=== PATIENT | female | born 1950 | race Caucasian/White ===

== ENCOUNTER 2020-09-15 09:45 | Outpatient (CLI) | payer MEDICARE ==
--- NOTE | 2020-09-17 08:38 | Ultrasound Report ---
LIMITED ULTRASOUND OF LEFT BREAST: 09/15/2020 CLINICAL: Focal left breast pain and redness. Comparison is made to exam dated: 09/15/2020 mammogram - [facility]. Color flow ultrasound of the left breast 7-10 o'clock region was performed. Hernandez scale images of th e real-time examination were reviewed. There is skin thickening in the left breast in the lower inner quadrant. Minimally edematous appeara nce to dermal layer. No underlying subcutaneous edema or hypervascularity. No drainable fluid collect ions. IMPRESSION: SUSPICIOUS OF MALIGNANCY Abnormal skin morphology in the left breast lower inner quadrant. Surgical evaluation and punch biopsy of the skin to exclude inflammatory breast carcinoma is recommen ded. Findings and recommendations were conveyed to the patient at time of exam. This exam was interpreted at Station ID: [id number]. Electronically Signed By: Beryl lopez/:09/16/2020 17:14:36 Ultrasound BI-RADS: 4 Suspicious for malignancy BI-RADS CATEGORY: (4) - 4 None [id number] Immediate follow-up LATERALITY: ()
--- NOTE | 2020-09-17 08:38 | Mammography Report ---
BILATERAL DIGITAL DIAGNOSTIC MAMMOGRAM 3D/2D: 09/15/2020 CLINICAL: Focal left breast pain. No prior exams were available for comparison. The tissue of both breasts is heterogeneously dense. T his may lower the sensitivity of mammography. There are benign surgical clips in the left axilla from remote melanoma excision. There is skin thickening in the left breast from 6 to 9 o'clock that correlate with clinical concern, redness, and reported pain. No underlying masses or calcifications. No significant masses, calcifications, or other findings are seen in either breast. IMPRESSION: INCOMPLETE: NEEDS ADDITIONAL IMAGING EVALUATION Skin thickening corresponds to the left lower inner quadrant area of concern. Ultrasound is recommend ed for full evaluation of this area. This was performed immediately following this exam. This exam was interpreted at Station ID: [id number]. NOTE: For mammograms, a report in lay terms will be sent to the patient. Approximately 15% of breast malignancies will not be visualized mammographically. In the management of a palpable breast mass, a negative mammogram must not discourage biopsy of a clinically suspicious lesion. Electronically Signed By: Beryl lopez/:09/15/2020 11:57:24 ACR BI-RADS Category 0: Incomplete [id number] PARENCHYMAL PATTERN: (D) - The breast(s) demonstrate(s) heterogeneously dense fibroglandular rico patel. BI-RADS CATEGORY: (0) - 0 Ultrasound [id number] Immediate follow-up LATERALITY: (B)
== END 2020-09-15 09:46 | disposition home or self-care (01) ==
LOC: DI 09:45
PROVIDERS: ATTEND Physician Assistant
DX: N64.59 Other signs and symptoms in breast (principal); R23.4 Changes in skin texture

== ENCOUNTER 2020-12-16 08:41 | Outpatient (CLI) | payer MEDICARE ==
[2020-12-16 09:09] LABS: BASOPHILS % (AUTO) 0.5 %; EOSINOPHILS # (AUTO) 0.1 10^3/uL (0.0-0.7); EOSINOPHILS % (AUTO) 1.9 %; HCT - HEMATOCRIT 45.1 % (37.0-47.0); HGB - HEMOGLOBIN 14.9 g/dL (12.0-16.0); LYMPHOCYTES # (AUTO) 1.9 10^3/uL (1.5-3.5); LYMPHOCYTES % (AUTO) 30.5 %; MEAN CORPUSCULAR HEMOGLOBIN 29.9 pg (27.0-31.0); MEAN CORPUSCULAR VOLUME 90.4 fL (81.0-99.0); MEAN PLATELET VOLUME 12.2 fL (7.9-10.8); MONOCYTES # (AUTO) 0.4 10^3/uL (0.0-1.0); MONOCYTES % (AUTO) 6.9 %; NEUTROPHILS # (AUTO) 3.7 10^3/uL (1.5-6.6); PLT - PLATELET COUNT 230 10^3/uL (130-450); RED BLOOD COUNT 4.99 10^6/uL (4.20-5.40); RED CELL DISTRIBUTION WIDTH 12.9 % (12.0-15.0); WHITE BLOOD COUNT 6.2 x10^3/uL (4.8-10.8)
[2020-12-16 09:18] LABS: ALBUMIN/GLOBULIN RATIO 1.6 (1.0-2.2); CALCIUM 9.1 mg/dL (8.5-10.3); CREATININE 0.9 mg/dL (0.4-1.0); POTASSIUM 4.3 mmol/L (3.5-5.0); TOTAL PROTEIN 6.5 g/dL (6.7-8.2)
[2020-12-16 09:31] LABS: THYROID STIMULATING HORMONE 7.91 uIU/mL (0.34-5.60)
[2020-12-16 10:17] LABS: FREE T4 (FREE THYROXINE) 1.25 ng/dL (0.58-1.64)
== END 2020-12-16 08:42 | disposition home or self-care (01) ==
LOC: LAB 08:41
PROVIDERS: ATTEND Physician Assistant
DX: G35 Multiple sclerosis (principal); F32.9 Major depressive disorder, single episode, unspecified; E03.9 Hypothyroidism, unspecified; K21.9 Gastro-esophageal reflux disease without esophagitis; Z79.899 Other long term (current) drug therapy
CPT/HCPCS: 36415; 80053; 84439; 84443; 85025

== ENCOUNTER 2021-01-19 10:18 | Outpatient (CLI) | payer MEDICARE ==
[2021-01-19 11:30] LABS: THYROID STIMULATING HORMONE 14.73 uIU/mL (0.34-5.60)
[2021-01-19 12:21] LABS: FREE T4 (FREE THYROXINE) 0.99 ng/dL (0.58-1.64)
== END 2021-01-19 10:19 | disposition home or self-care (01) ==
LOC: LAB 10:18
PROVIDERS: ATTEND Physician Assistant
DX: E03.9 Hypothyroidism, unspecified (principal)
CPT/HCPCS: 36415; 84439; 84443

== ENCOUNTER 2021-03-11 07:43 | Outpatient (CLI) | payer MEDICARE ==
[2021-03-11 08:45] LABS: THYROID STIMULATING HORMONE 0.87 uIU/mL (0.34-5.60)
== END 2021-03-11 07:44 | disposition home or self-care (01) ==
LOC: LAB 07:43
PROVIDERS: ATTEND Physician Assistant
DX: E03.9 Hypothyroidism, unspecified (principal)
CPT/HCPCS: 36415; 84443

== ENCOUNTER 2021-03-25 06:41 | Day surgery (SDC) | payer MEDICARE ==
[2021-03-25] MEDS ORDERED: LACTATED RINGERS 1,000 ML IV ONE ×2 (07:11→08:29)
[2021-03-25] MEDS ORDERED: PROPARACAINE 0.5% OPHTH DROPS 15 ML LEFTEYE ONE (07:23)
[2021-03-25] MEDS ORDERED: CYCLOPENTOLATE 1% OPHTH DROPS 2 ML LEFTEYE ONE (07:25)
[2021-03-25] MEDS ORDERED: PHENYLEPHRINE 2.5% OPHTH 2 ML DROPS LEFTEYE ONE (07:25)
[2021-03-25] MEDS ORDERED: KETOROLAC 0.45% OPHTH DROPS LEFTEYE ONE (07:25)
[2021-03-25] MEDS ORDERED: MIDAZOLAM 2 MG/2 ML VIAL ONE (07:47)
--- NOTE | 2021-03-25 07:49 | ANESTHESIA ---
Pre-Anesthesia VS, & Labs - Diagnosis L cataract - Procedure L PhacoIOL Vital Signs: Temp Pulse Resp BP Pulse Ox 36.5 C 69 12 143/89 H 96 03/25/21 07:12 03/25/21 07:12 03/25/21 07:12 03/25/21 07:12 03/25/21 07:12 Height: 5 ft 8 in Weight (kg): 111 kg Body Mass Index: 37.2 BMI Classification: Obese - NPO >8 hours - Is Patient ?: No Home Medications and Allergies Allergies/Adverse Reactions: Allergies Allergy/AdvReac Type Severity Reaction Status Date / Time codeine Allergy Nausea Verified 03/25/21 07:48 Penicillins Allergy Rash Verified 03/25/21 07:47 Sulfa (Sulfonamide Allergy Rash Verified 03/25/21 07:47 Antibiotics) Anes History & Medical History - Anesthetic History Anesthesia Complications: reports: No previous complications Family history of Anesthesia Complications: Denies Family history of Malignant Hyperthermia: Denies - Medical History Cardiovascular: reports: Hypertension Pulmonary: reports: Pneumonia Gastrointestinal: reports: GERD Urinary: reports: None Musculoskeletal: reports: Fibromyalgia Endocrine/Autoimmune: reports: HyPOthyroidism Skin: reports: Herpes zoster - Surgical History General: reports: Cholecystectomy, Appendectomy Eyes Ears Nose Throat (EENT): Gynecologic: reports: Hysterectomy Orthopedic: reports: Other Exam General: Alert, Oriented x3, Cooperative Dental: WNL Mouth Openin Fingerbreadth Neck Mobility: Normal Mallampati classification: II Thyromental Distance: 4-6 cm Respiratory: Lungs clear Cardiovascular: Regular rate Plan Anesthesia Type: MAC Consent for Procedure(s) Verified and Reviewed: Yes Code Status: Attempt Resuscitation ASA classification: 2-Mild systemic disease Is this case an emergency?: No
[2021-03-25] MEDS ORDERED: EPINEPHrine 1 MG/ML AMP IR ONE (08:07)
[2021-03-25] MEDS ORDERED: VANCOMYCIN OPHTHALMI 8MG/0.8ML 8 MG/0.8 ML SYRINGE IO ONE ×2 (08:07→13:43)
[2021-03-25] MEDS ORDERED: PROPARACAINE 0.5% OPHTH DROPS 15 ML EACHEYE ONE (08:07)
[2021-03-25] MEDS ORDERED: TRIAMCIN/MOXIFLOX OPHTHALMIC 0.6 ML VIAL IO ONE ×2 (08:07→13:42)
[2021-03-25] MEDS ORDERED: BRIMONIDINE 0.2% OPHTH DROPS 5 ML OPTH ONE (08:07)
[2021-03-25] MEDS ORDERED: CHONDR SULF/HYALURONATE SYRINGE IO ONE (08:07)
[2021-03-25] MEDS ORDERED: TIMOLOL 0.5% OPHTH DROPS OPTH ONE (08:07)
[2021-03-25] MEDS ORDERED: BSS/LIDOCAINE/EPINEPHRINE 1 ML SYRINGE IO ONE (08:07)
--- NOTE | 2021-03-25 08:34 | OPERATIVE REPORT ---
Operative Report - Other Other Information/Narrative: Date of Surgery: 03/25/21 Preop Dx: Visually significant cataract left eye. This was the first cataract surgery. Postop Dx: Same Procedure: Phacoemulsification with posterior chamber intraocular lens implant left eye Surgeon: Dr. Jude Littlejohn Anesthesia: Monitored anesthesia care Complications: None Operative Indications: This is a 70-year-old F with progressive vision loss in the left eye due to 2+ nuclear sclerotic and 2-3+ cortical cataract. Best corrected visual acuity was 20/30 with glare to 20/60 vision in the left eye. Indications for surgery were: - Difficulty seeing words on a computer screen - Difficulty reading - Difficulty driving in low light or at night - Difficulty driving at night because of headlights from other vehicles - Difficulty with glare or bright lights in any situation - Difficulty tracking a golf ball The patient was consented at length concerning the risks and benefits of cat aract surgery after which the patient expressed a desire to proceed with surgery. Operative Procedure: The patient was taken into OR#3 and placed under monitored anesthesia care. A surgical time-out was conducted confirming correct patient, correct procedure, and correct surgical site. The patient was given topical anesthesia and then prepped and draped in the usual sterile fashion. The eye was entered at the 6 and 3 oclock positions. Intracameral Shugarcaine was injected into the anterior chamber followed by a dispersive viscoelastic. A continuous-tear curvilinear capsulorhexis was performed. The nucleus was hydrodissected and phacoemulsified. The cortex was evacuated using automated infusion and aspiration. A cohesive viscoelastic was injected into the capsular bag and a 21.0 diopter intraocular lens was inserted into the bag. Infusion and aspiration were used to evacuate the viscoelastic materials from the eye. The wounds were hydrated and the eye inflated to physiologic pressure using balanced salt solution. Approximately 0.25ml of a mixture of triamcinolone and moxifloxacin was injected trans-sclerally into the vitreous in the inferotempora l quadrant using a 30 gauge cannula. An additional 0.55ml of a mixture of triamcinolone, moxifloxacin, and vancomycin was injected subconjunctivally in the superior quadrant for infection and inflammation prophylaxis. Wound integrity was checked with Weck-Irene sponges. The patient was taken from the operating room in good condition and given post-op instructions.
[2021-03-25 08:43] VITALS: BP 139/64
--- NOTE | 2021-03-25 10:29 | ANESTHESIA POST OP EVALUATION ---
Anesthesia Post Eval - Post Anesthesia Eval Vitals: Last Vital Signs Temp 36.4 C L 03/25/21 08:40 Pulse 65 03/25/21 08:40 Resp 10 L 03/25/21 08:40 BP 139/64 H 03/25/21 08:40 Pulse Ox 100 03/25/21 08:40 CV Function Including HR & BP: Stable Pain Control: Satisfactory Nausea & Vomiting: Negative Mental Status: Baseline Respiratory Status: Airway Patent Hydration Status: Satisfactory Anesthesia Complications: None
[2021-03-25] MEDS ORDERED: BSS/LIDOCAINE/EPINEPHRINE 1 ML SYRINGE ONE (13:43)
[2021-03-25] MEDS ORDERED: EPINEPHrine 1 MG/ML AMP ONE (13:43)
[2021-03-25] MEDS ORDERED: BRIMONIDINE 0.2% OPHTH DROPS 5 ML ONE (13:43)
[2021-03-25] MEDS ORDERED: TIMOLOL 0.5% OPHTH DROPS ONE (13:43)
== END 2021-03-25 06:42 | disposition home or self-care (01) ==
LOC: SDS 06:41
PROVIDERS: ATTEND Ophthalmology
DX: H25.812 Combined forms of age-related cataract, left eye (principal); I10 Essential (primary) hypertension; G35 Multiple sclerosis; E03.9 Hypothyroidism, unspecified; K21.9 Gastro-esophageal reflux disease without esophagitis; M79.7 Fibromyalgia; Z68.37 Body mass index [BMI] 37.0-37.9, adult; E66.9 Obesity, unspecified; Z87.01 Personal history of pneumonia (recurrent); Z79.899 Other long term (current) drug therapy
CPT/HCPCS: 66984; A9270; J7120

== ENCOUNTER 2021-05-20 13:05 | Outpatient (CLI) | payer MEDICARE | END 2021-05-20 23:59 | disposition home or self-care (01) | LOC: LAB.N 13:05 | PROVIDERS: ATTEND Physician Assistant | DX: R05.3 Chronic cough (principal); Z20.822 Contact with and (suspected) exposure to COVID-19 ==

== ENCOUNTER 2021-06-10 16:16 | Outpatient (CLI) | payer MEDICARE | END 2021-06-10 16:17 | disposition critical access hospital (66) | LOC: EMS 16:16 | DX: R42 Dizziness and giddiness (principal); R11.0 Nausea; R19.7 Diarrhea, unspecified | CPT/HCPCS: A0425; A0427 ==

== ENCOUNTER 2021-06-10 16:43 | Emergency (ER) | payer MEDICARE ==
[2021-06-10] MEDS ORDERED: SODIUM CHLORIDE 0.9% 1,000 ML IV STA (16:50)
[2021-06-10 17:01] LABS: BASOPHILS % (AUTO) 0.4 %; EOSINOPHILS # (AUTO) 0.1 10^3/uL (0.0-0.7); EOSINOPHILS % (AUTO) 0.5 %; HCT - HEMATOCRIT 43.4 % (37.0-47.0); HGB - HEMOGLOBIN 14.1 g/dL (12.0-16.0); LYMPHOCYTES # (AUTO) 2.2 10^3/uL (1.5-3.5); LYMPHOCYTES % (AUTO) 22.8 %; MEAN CORPUSCULAR HEMOGLOBIN 28.7 pg (27.0-31.0); MEAN CORPUSCULAR HGB CONC 32.5 g/dL (32.0-36.0); MEAN CORPUSCULAR VOLUME 88.4 fL (81.0-99.0); MEAN PLATELET VOLUME 11.6 fL (7.9-10.8); MONOCYTES # (AUTO) 0.7 10^3/uL (0.0-1.0); MONOCYTES % (AUTO) 6.9 %; NEUTROPHILS # (AUTO) 6.5 10^3/uL (1.5-6.6); NEUTROPHILS % (AUTO) 69.1 %; PLT - PLATELET COUNT 237 10^3/uL (130-450); RED BLOOD COUNT 4.91 10^6/uL (4.20-5.40); WHITE BLOOD COUNT 9.5 x10^3/uL (4.8-10.8)
[2021-06-10 17:15] LABS: ALBUMIN 3.9 g/dL (3.2-5.5); ALBUMIN/GLOBULIN RATIO 1.5 (1.0-2.2); BILIRUBIN,TOTAL 0.7 mg/dL (0.2-1.0); CALCIUM 9.5 mg/dL (8.5-10.3); CREATININE 0.9 mg/dL (0.4-1.0); TOTAL PROTEIN 6.5 g/dL (6.7-8.2)
--- NOTE | 2021-06-10 17:21 | ED Physician Documentation ---
History of Present Illness - Stated complaint Stated Complaint: LIGHTHEADED - Chief complaint Chief Complaint: General - History obtained from History obtained from: Patient - History of Present Illness Timing: How many weeks ago (5) Pain level max: 0 Pain level now: 0 - Additonal information Additional information: Patient is a 70-year-old female who presents to the emergency department with diarrhea 2-3 times daily for the past 5 weeks. She has seen her doctor and been worked up for this with no cause found. She states she has not done the stool sample yet because she has not had any formed stool. No recent travel or antibiotics. No fevers. No chills. She went to the walk-in clinic today because she felt lightheaded. They sent her here for possible dehydration. Patient has no vomiting. No blood in the stool. Occasional crampy abdominal pain, none now Review of Systems Ten Systems: 10 systems reviewed and negative Constitutional: denies: Fever, Chills Ears: denies: Ear pain Nose: denies: Rhinorrhea / runny nose, Congestion Respiratory: denies: Cough GI: denies: Abdominal Pain, Nausea, Vomiting, Diarrhea : denies: Dysuria Skin: denies: Rash Musculoskeletal: denies: Neck pain, Back pain Neurologic: denies: Headache PD PAST MEDICAL HISTORY - Past Medical History Cardiovascular: Hypertension Respiratory: Pneumonia Endocrine/Autoimmune: HyPOthyroidism GI: GERD : None HEENT: Other Psych: None Musculoskeletal: Fibromyalgia Derm: Herpes zoster - Past Surgical History General: Cholecystectomy, Appendectomy Ortho: Other /OPERATIONS BOARDMAN: Hysterectomy HEENT:  - Present Medications Home Medications: Ambulatory Orders Medication Instructions Recorded Confirmed DULoxetine [Cymbalta] 30 mg PO DAILY 03/25/21 06/10/21 Levothyroxine [Synthroid] 175 mcg PO DAILY 03/25/21 06/10/21 Omeprazole 1 tab PO DAILY 03/25/21 06/10/21 - Allergies Allergies/Adverse Reactions: Allergies Allergy/AdvReac Type Severity Reaction Status Date / Time codeine Allergy Nausea Verified 06/10/21 16:48 Penicillins Allergy Rash Verified 06/10/21 16:48 Sulfa (Sulfonamide Allergy Rash Verified 06/10/21 16:48 Antibiotics) PD ED PE NORMAL - Vitals Vital signs reviewed: Yes - General General: Alert and oriented X 3, No acute distress - HEENT HEENT: Moist mucous membranes - Neck Neck: Supple, no meningeal sign - Cardiac Cardiac: RRR - Respiratory Respiratory: No respiratory distress, Clear bilaterally - Abdomen Abdomen: Soft, Non tender, Non distended - Derm Derm: Warm and dry - Extremities Extremities: No edema, No calf tenderness / cord - Neuro Neuro: Alert and oriented X 3 - Psych Psych: Normal mood, Normal affect Results - Vitals Vitals: Vital Signs - 24 hr 06/10/21 06/10/21 06/10/21 16:48 17:01 20:13 Temperature 36.5 C Heart Rate 75 60 Respiratory 16 13 20 Rate Blood Pressure 163/88 H 178/95 H 156/93 H O2 Saturation 99 100 Oxygen O2 Source Room air - Labs Labs: Laboratory Tests 06/10/21 06/10/21 06/10/21 16:57 16:57 17:40 WBC 9.5 RBC 4.91 Hgb 14.1 Hct 43.4 MCV 88.4 MCH 28.7 MCHC 32.5 RDW 13.0 Plt Count 237 MPV 11.6 H Neut # (Auto) 6.5 Lymph # (Auto) 2.2 [place] # (Auto) 0.7 Eos # (Auto) 0.1 Baso # (Auto) 0.0 Absolute Nucleated RBC 0.00 Nucleated RBC % 0.0 Sodium 139 Potassium 4.0 Chloride 102 Carbon Dioxide 28 Anion Gap 9.0 BUN 17 Creatinine 0.9 Estimated GFR (MDRD) 62 L Glucose 103 H Calcium 9.5 Total Bilirubin 0.7 AST 17 ALT 18 Alkaline Phosphatase 74 Total Protein 6.5 L Albumin 3.9 Globulin 2.6 Albumin/Globulin Ratio 1.5 Lipase 31 Urine Color STRAW Urine Clarity CLEAR Urine pH 5.5 Ur Specific [place] <=1.005 Urine Protein NEGATIVE Urine Glucose (UA) NEGATIVE Urine Ketones NEGATIVE Urine Occult Blood NEGATIVE Urine Nitrite NEGATIVE Urine Bilirubin NEGATIVE Urine Urobilinogen 0.2 (NORMAL) Ur Leukocyte Esterase SMALL H Urine RBC None Seen Urine WBC 4-5 Ur Squamous Epith Cells FEW Squamous Urine Bacteria Few Ur Microscopic Review INDICATED Urine Culture Comments INDICATED - Rads (name of study) ct ABD/PELVIS Radiology: Final report received, EMP read contemporaneously, See rad report PD MEDICAL DECISION MAKING - ED course Complexity details: reviewed results, re-evaluated patient, considered differential, d/w patient ED course: Patient is well-appearing, nontoxic. Afebrile. Tolerating p.o. without difficulty here. Possible gastroenteritis on CT abdomen pelvis. Feels better after IV fluids. No vital sign abnormalities. We will continue supportive care, recommend that she perform stool testing with her doctor. No diarrhea here. No evidence of C. difficile. No indication for antibiotics. She has a colonoscopy scheduled later this month as well. Patient counseled regarding signs and symptoms for which I believe and urgent re-evaluation would be necessary. Patient with good understanding of and agreement to plan and is comfortable going home at this time This document was made in part using voice recognition software. While efforts are made to proofread this document, sound alike and grammatical errors may occur. Departure - Departure Disposition: 01 Home, Self Care Clinical Impression: Dehydration Diarrhea Qualifiers: Diarrhea type: unspecified type Qualified Code(s): R19.7 - Diarrhea, unspecified Condition: Good Instructions: ED Dehydration, ED Diet Vomiting Diarrhea Follow-Up: Abdulkadir Richards, [Primary Care Provider] - Within 1 week Comments: I would recommend doing the stool studies as have been ordered by your doctor. I would also recommend you following up with a colonoscopy. Your CT of your abdomen and pelvis appears consistent with a gastroenteritis. Please drink plenty of fluids. Return if you worsen. Discharge Date/Time: 06/10/21 20:17
[2021-06-10] MEDS ORDERED: IOPAMIDOL-300 100 ML VIAL ONE (17:25)
[2021-06-10] MEDS ORDERED: IOPAMIDOL-300 100 ML VIAL IVP ONE (18:12)
[2021-06-10 18:26] LABS: BILIRUBIN,URINE NEGATIVE (NEGATIVE); CLARITY,URINE CLEAR (CLEAR); GLUCOSE, URINE (UA) NEGATIVE (NEGATIVE); KETONES,URINE (UA) NEGATIVE (NEGATIVE); LEUKOCYTE ESTERASE, URINE SMALL (NEGATIVE); NITRITE,URINE NEGATIVE (NEGATIVE); OCCULT BLOOD,URINE NEGATIVE (NEGATIVE); PH,URINE 5.5 PH (5.0-7.5); PROTEIN,URINE NEGATIVE (NEGATIVE); UROBILINOGEN,URINE 0.2 (NORMAL) E.U./dL (NORMAL)
[2021-06-10 18:44] LABS: BACTERIA,URINE Few /HPF (None Seen); RBC,URINE None Seen /HPF (0-5); SQUAMOUS EPITHELIAL CELL,UR FEW Squamous (<= Few)
--- NOTE | 2021-06-10 19:08 | CT Report ---
PROCEDURE: Abdomen/Pelvis W INDICATIONS: diffuse abd pain, diarrhea x 5 weeks CONTRAST: IV CONTRAST: Isovue 300 ml: 100 PO CONTRAST: *NO PO CONTRAST TECHNIQUE: After the administration of intravenous contrast, 5 mm thick sections acquired from the diaphragms to the symphysis. 5 mm thick coronal and sagittal reformats were acquired. For radiation dose reducti on, the following was used: automated exposure control, adjustment of mA and/or kV according to radha ent size. COMPARISON: None. FINDINGS: Image quality: Excellent. ABDOMEN: Lung bases: There is mild scarring the lung bases. Heart size is normal. Solid organs: Evaluation of the liver demonstrates no focal hepatic lesions. Gallbladder is surgical ly absent. Biliary system is non dilated. The spleen is normal in size. Pancreas enhances normally w ithout peripancreatic fat stranding or fluid collections. No adrenal nodules. Kidneys demonstrate n o hydronephrosis. There is a small hypodensity in the left kidney which is too small to characterize but likely represents a cyst. Peritoneum and bowel: Bowel loops demonstrate normal wall thickness and caliber. There is colonic di verticulosis without acute diverticulitis. There are air-fluid levels within the cecum and descending colon suggestive of a gastroenteritis. No free fluid or air. Nodes and vessels: No retroperitoneal or mesenteric adenopathy by size criteria. Aorta and inferior vena cava are normal in size. Miscellaneous: No ventral hernias. PELVIS: Genitourinary: Bladder wall thickness is normal. Miscellaneous: No inguinal hernias or adenopathy. Bones: No suspicious bony lesions. No vertebral body compression fractures. IMPRESSION: 1. Air-fluid levels within the proximal colon suggestive of a gastroenteritis. No evidence of bowel o bstruction. Reviewed by: Eric Constantino MD on 06/10/2021 6:07 PM [facility] Approved by: Eric Constantino MD on 06/10/2021 6:07 PM [facility] Station ID: [id number]
[2021-06-10 20:17] VITALS: BP 156/93
== END 2021-06-10 20:17 | disposition home or self-care (01) ==
LOC: ED 16:43
DX: E86.0 Dehydration (principal); R19.7 Diarrhea, unspecified
CPT/HCPCS: 36415; 74177; 80053; 81001; 83690; 85025; 87086; 96360; 96361; 99283; 99284; Q9967; 81003

== ENCOUNTER 2021-06-29 12:28 | Day surgery (SDC) | payer MEDICARE ==
[2021-06-29] MEDS ORDERED: LACTATED RINGERS 1,000 ML IV ONE (12:30)
--- NOTE | 2021-06-29 13:08 | ANESTHESIA ---
Pre-Anesthesia VS, & Labs - Diagnosis diverticuar disease - Procedure colonoscopy Vital Signs: Temp Pulse Resp BP Pulse Ox 36.9 C 70 18 156/85 H 98 06/29/21 12:34 06/29/21 12:34 06/29/21 12:34 06/29/21 12:34 06/29/21 12:34 Height: 5 ft 8 in Weight (kg): 112 kg Body Mass Index: 37.5 BMI Classification: Obese - NPO >8 hours - Is Patient ?: No Home Medications and Allergies DULoxetine [Cymbalta] 30 mg PO DAILY 03/25/21 Levothyroxine [Synthroid] 175 mcg PO DAILY 03/25/21 Omeprazole 1 tab PO DAILY 03/25/21 Allergies/Adverse Reactions: Allergies Allergy/AdvReac Type Severity Reaction Status Date / Time codeine Allergy Nausea Verified 06/10/21 16:48 Penicillins Allergy Rash Verified 06/10/21 16:48 Sulfa (Sulfonamide Allergy Rash Verified 06/10/21 16:48 Antibiotics) divalproex sodium AdvReac Severe Emesis Verified 06/16/21 16:16 [From Depakote] lorazepam AdvReac Severe Edema Verified 06/16/21 16:16 naproxen [From Naprosyn] AdvReac Severe Edema Verified 06/16/21 16:16 nortriptyline AdvReac Severe Emesis Verified 06/16/21 16:16 prednisone AdvReac Severe Emesis Verified 06/16/21 16:16 prochlorperazine AdvReac Severe Emesis Verified 06/16/21 16:16 [From Compazine] Anes History & Medical History - Anesthetic History Anesthesia Complications: reports: No previous complications - Medical History Cardiovascular: reports: Hypertension Pulmonary: reports: Pneumonia Gastrointestinal: reports: GERD Urinary: reports: None Musculoskeletal: reports: Fibromyalgia, Other (MS) Endocrine/Autoimmune: reports: HyPOthyroidism Blood Disorders: reports: None Skin: reports: Herpes zoster Smoking Status: Never smoker History of Cancer?: Yes (melenoma) - Surgical History General: reports: Cholecystectomy, Appendectomy Eyes Ears Nose Throat (EENT): Gynecologic: reports: Hysterectomy, Oophrectomy Orthopedic: reports: Other Exam General: Alert, Oriented x3 Mouth Opening: Greater than 4 Fingerbreadths Mallampati classification: III Thyromental Distance: greater than 6 cm Respiratory: Lungs clear Cardiovascular: Regular rate, Normal S1, Normal S2 Plan Anesthesia Type: Total IV Consent for Procedure(s) Verified and Reviewed: Yes Code Status: Attempt Resuscitation ASA classification: 2-Mild systemic disease Is this case an emergency?: No
[2021-06-29] MEDS ORDERED: PROPOFOL 500 MG/50 ML 500 MG/50 ML VIAL ONE (13:19)
[2021-06-29] MEDS ORDERED: GLYCOPYRROLATE 1 MG/5 ML VIAL ONE (13:33)
[2021-06-29] MEDS ORDERED: LACTATED RINGERS 400 ML IV ONE (13:45)
[2021-06-29 14:40] VITALS: BP 130/68
--- NOTE | 2021-06-29 14:40 | ANESTHESIA POST OP EVALUATION ---
Anesthesia Post Eval - Post Anesthesia Eval Vitals: Last Vital Signs Temp 36.9 C 06/29/21 14:15 Pulse 62 06/29/21 14:15 Resp 12 06/29/21 14:15 BP 130/68 06/29/21 14:15 Pulse Ox 98 06/29/21 14:15 CV Function Including HR & BP: Stable Pain Control: Satisfactory Nausea & Vomiting: Negative Mental Status: Baseline Respiratory Status: Airway Patent Hydration Status: Satisfactory Anesthesia Complications: None
== END 2021-06-29 12:29 | disposition home or self-care (01) ==
LOC: SDS 12:28
PROVIDERS: ATTEND Surgery
PROC: 0DBE8ZX Excision of Large Intestine, Via Natural or Artificial Opening Endoscopic, Diagnostic (ICD-10-PCS; principal; 2021-06-29 13:45)
DX: R19.7 Diarrhea, unspecified (principal); K64.8 Other hemorrhoids; K57.30 Diverticulosis of large intestine without perforation or abscess without bleeding; Q43.8 Other specified congenital malformations of intestine; E66.9 Obesity, unspecified; I10 Essential (primary) hypertension; Z68.38 Body mass index [BMI] 38.0-38.9, adult
CPT/HCPCS: 45380; 81599; 83630; 87015; 87177; 87209; 87272; 87329; 87493; J7120; 87045; 87046

== ENCOUNTER 2021-12-21 11:48 | Emergency (ER) | payer MEDICARE ==
[2021-12-21 12:20] LABS: BASOPHILS % (AUTO) 0.4 %; EOSINOPHILS # (AUTO) 0.1 10^3/uL (0.0-0.7); EOSINOPHILS % (AUTO) 0.7 %; HCT - HEMATOCRIT 45.5 % (37.0-47.0); HGB - HEMOGLOBIN 14.7 g/dL (12.0-16.0); LYMPHOCYTES # (AUTO) 1.5 10^3/uL (1.5-3.5); MEAN CORPUSCULAR HEMOGLOBIN 28.9 pg (27.0-31.0); MEAN CORPUSCULAR HGB CONC 32.3 g/dL (32.0-36.0); MEAN CORPUSCULAR VOLUME 89.4 fL (81.0-99.0); MEAN PLATELET VOLUME 11.7 fL (7.9-10.8); MONOCYTES # (AUTO) 0.4 10^3/uL (0.0-1.0); MONOCYTES % (AUTO) 5.3 %; NEUTROPHILS # (AUTO) 5.3 10^3/uL (1.5-6.6); NEUTROPHILS % (AUTO) 72.3 %; PLT - PLATELET COUNT 228 10^3/uL (130-450); RED BLOOD COUNT 5.09 10^6/uL (4.20-5.40); RED CELL DISTRIBUTION WIDTH 13.5 % (12.0-15.0); WHITE BLOOD COUNT 7.3 x10^3/uL (4.8-10.8)
[2021-12-21] MEDS ORDERED: SODIUM CHLORIDE 0.9% 1,000 ML IV STA (12:22)
[2021-12-21] MEDS ORDERED: ONDANSETRON 4 MG/2 ML VIAL IVP STA (12:22)
[2021-12-21] MEDS ORDERED: MECLIZINE 12.5 MG TABLET PO STA (12:25)
--- NOTE | 2021-12-21 12:26 | ED Physician Documentation ---
History of Present Illness - Stated complaint Stated Complaint: SPIDER BITE/CHILLS/DIZZY - Chief complaint Chief Complaint: Neuro - History obtained from History obtained from: Patient, EMS - History of Present Illness Timing: Today Pain level max: 0 Pain level now: 0 - Additonal information Additional information: Patient is a 71-year-old female who states that about 3-1/2 hours prior to arrival she started to feel lightheaded and "dizzy". She felt nauseated as well. She felt like the room was spinning. No headache. No focal neurological deficits. No abdominal pain. No fevers. She states she feels dizzy still and mildly lightheaded. She states she ate and drank normally today. 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 HEENT: Other Psych: None, Depression, Anxiety Musculoskeletal: Fibromyalgia, Other (MS) Derm: Herpes zoster - Past Surgical History Past Surgical History: Yes General: Cholecystectomy, Appendectomy Ortho: Other /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: Hysterectomy, Oophrectomy HEENT:  - Present Medications Home Medications: Ambulatory Orders Medication Instructions Recorded Confirmed DULoxetine [Cymbalta] 30 mg PO DAILY 03/25/21 06/16/21 Levothyroxine [Synthroid] 175 mcg PO DAILY 03/25/21 06/16/21 Omeprazole 1 tab PO DAILY 03/25/21 06/16/21 Meclizine HCl [Motion Sickness] 25 mg PO Q6H PRN #30 tablet 12/21/21 Nitrofurantoin [Macrobid] 100 mg PO BID #10 cap 12/21/21 Ondansetron Odt [Zofran] 4 mg TL Q6H PRN #10 tablet 12/21/21 - Allergies Allergies/Adverse Reactions: Allergies Allergy/AdvReac Type Severity Reaction Status Date / Time codeine Allergy Nausea Verified 06/10/21 16:48 Penicillins Allergy Rash Verified 06/10/21 16:48 Sulfa (Sulfonamide Allergy Rash Verified 06/10/21 16:48 Antibiotics) divalproex sodium AdvReac Severe Emesis Verified 06/16/21 16:16 [From Depakote] lorazepam AdvReac Severe Edema Verified 06/16/21 16:16 naproxen [From Naprosyn] AdvReac Severe Edema Verified 06/16/21 16:16 nortriptyline AdvReac Severe Emesis Verified 06/16/21 16:16 prednisone AdvReac Severe Emesis Verified 06/16/21 16:16 prochlorperazine AdvReac Severe Emesis Verified 06/16/21 16:16 [From Compazine] - Social History Does the pt smoke?: No Smoking Status: Never smoker Does the pt drink ETOH?: Yes Does the pt have substance abuse?: No - Immunizations Immunizations are current?: Yes - POLST Patient has POLST: No PD ED PE NORMAL - Vitals Vital signs reviewed: Yes - General General: Alert and oriented X 3, No acute distress, Well developed/nourished - HEENT HEENT: PERRL, Ears normal, Moist mucous membranes, Pharynx benign - Neck Neck: Supple, no meningeal sign, No JVD, No bruit - Cardiac Cardiac: RRR, No murmur, Strong equal pulses - Respiratory Respiratory: No respiratory distress, Clear bilaterally - Abdomen Abdomen: Soft, Non tender, Non distended - Derm Derm: Warm and dry, Other (There are 3-4 small papules on the left arm. She states these are itchy. No vesicles. No pustules.) - Extremities Extremities: No edema, No calf tenderness / cord - Neuro Neuro: Alert and oriented X 3, bull driver 2-12 intact, No motor deficit, No sensory deficit, Normal speech, Other (Normal cerebellar test. Normal gait) Eye Opening: Spontaneous Motor: Obeys Commands Verbal: Oriented GCS Score: 15 - Psych Psych: Normal mood, Normal affect Results - Vitals Vitals: Vital Signs - 24 hr 12/21/21 12/21/21 11:57 14:00 Temperature 36.8 C Heart Rate 67 58 L Respiratory 18 14 Rate Blood Pressure 143/113 H 146/70 H O2 Saturation 99 100 Oxygen O2 Source Room air - EKG (time done) 1202 Rate: Rate (enter#) (66) Rhythm: NSR [place]: Normal Intervals: Normal AR QRS: Normal Ischemia: Normal ST segments - Labs Labs: Laboratory Tests 12/21/21 12/21/21 12/21/21 12:13 12:13 12:13 WBC 7.3 RBC 5.09 Hgb 14.7 Hct 45.5 MCV 89.4 MCH 28.9 MCHC 32.3 RDW 13.5 Plt Count 228 MPV 11.7 H Neut # (Auto) 5.3 Lymph # (Auto) 1.5 [place] # (Auto) 0.4 Eos # (Auto) 0.1 Baso # (Auto) 0.0 Absolute Nucleated RBC 0.00 Nucleated RBC % 0.0 Sodium 139 Potassium 3.9 Chloride 103 Carbon Dioxide 28 Anion Gap 8.0 BUN 17 Creatinine 0.8 Estimated GFR (MDRD) 71 L Glucose 105 H Calcium 9.3 Total Bilirubin 0.6 AST 22 ALT 22 Alkaline Phosphatase 76 Troponin I High Sens 2.6 Total Protein 6.6 L Albumin 3.8 Globulin 2.8 Albumin/Globulin Ratio 1.4 Lipase 36 Urine Color Urine Clarity Urine pH Ur Specific [place] Urine Protein Urine Glucose (UA) Urine Ketones Urine Occult Blood Urine Nitrite Urine Bilirubin Urine Urobilinogen Ur Leukocyte Esterase Urine RBC Urine WBC Ur Squamous Epith Cells Urine Bacteria Ur Microscopic Review Urine Culture Comments 12/21/21 13:30 WBC RBC Hgb Hct MCV MCH MCHC RDW Plt Count MPV Neut # (Auto) Lymph # (Auto) [place] # (Auto) Eos # (Auto) Baso # (Auto) Absolute Nucleated RBC Nucleated RBC % Sodium Potassium Chloride Carbon Dioxide Anion Gap BUN Creatinine Estimated GFR (MDRD) Glucose Calcium Total Bilirubin AST ALT Alkaline Phosphatase Troponin I High Sens Total Protein Albumin Globulin Albumin/Globulin Ratio Lipase Urine Color YELLOW Urine Clarity SL. CLOUDY Urine pH 6.0 Ur Specific [place] <=1.005 Urine Protein NEGATIVE Urine Glucose (UA) NEGATIVE Urine Ketones NEGATIVE Urine Occult Blood NEGATIVE Urine Nitrite NEGATIVE Urine Bilirubin NEGATIVE Urine Urobilinogen 0.2 (NORMAL) Ur Leukocyte Esterase SMALL H Urine RBC None Seen Urine WBC 11-25 H Ur Squamous Epith Cells MOD Squamous H Urine Bacteria Rare Ur Microscopic Review INDICATED Urine Culture Comments NOT INDICATED PD MEDICAL DECISION MAKING - ED course Complexity details: reviewed results, re-evaluated patient, considered pat good d/w patient, d/w family ED course: Symptoms resolved in the emergency department. Normal cerebellar test. Normal ambulation and gait. She does have a UTI and we will place her on antibiotics for home. Feels better after IV fluids, meclizine and Zofran. Possible vertigo? No focal neurological deficits. NIH stroke scale 0. Patient counseled regarding signs and symptoms for which I believe and urgent re- evaluation would be necessary. Patient with good understanding of and agreement to plan and is comfortable going home at this time This document was made in part using voice recognition software. While efforts are made to proofread this document, sound alike and grammatical errors may occur. Departure - Departure Disposition: Home, Self Care Clinical Impression: Dizziness UTI (urinary tract infection) Qualifiers: Urinary tract infection type: acute cystitis Hematuria presence: without hematuria Qualified Code(s): N30.00 - Acute cystitis without hematuria Condition: Good Instructions: ED Dizziness UKO, ED UTI Cystitis Female Follow-Up: Abdulkadir Richards DO [Primary Care Provider] - Within 1 week Prescriptions: Nitrofurantoin [Macrobid] 100 mg PO BID #10 cap Meclizine HCl [Motion Sickness] 25 mg PO Q6H PRN #30 tablet PRN Reason: Dizziness Ondansetron Odt [Zofran] 4 mg TL Q6H PRN #10 tablet PRN Reason: Nausea / Vomiting Comments: Follow up with your doctor for further care. Take all antibiotics until gone. Y our prescriptions were sent to [facility] in [place].
[2021-12-21 12:35] LABS: ALBUMIN 3.8 g/dL (3.2-5.5); ALBUMIN/GLOBULIN RATIO 1.4 (1.0-2.2); BILIRUBIN,TOTAL 0.6 mg/dL (0.2-1.0); CALCIUM 9.3 mg/dL (8.5-10.3); CREATININE 0.8 mg/dL (0.4-1.0); POTASSIUM 3.9 mmol/L (3.5-5.0); TOTAL PROTEIN 6.6 g/dL (6.7-8.2)
--- NOTE | 2021-12-21 13:04 | XRAY Report ---
PROCEDURE: Chest 1 View X-Ray INDICATIONS: near syncope TECHNIQUE: One view of the chest was acquired. COMPARISON: None FINDINGS: Surgical changes and devices: Surgical clips in the left axilla, and anterior plate and screw hardwar e noted in the lower cervical spine. Lungs and pleura: No pleural effusions or pneumothorax. Lungs are clear. Mediastinum: Mediastinal contours appear normal. Heart size is normal. Bones and chest wall: No suspicious bony lesions. Overlying soft tissues appear unremarkable. IMPRESSION: No acute cardiopulmonary findings Reviewed by: Keith Burkett MD on 12/21/2021 12:03 PM [facility] Approved by: Keith Burkett MD on 12/21/2021 12:03 PM [facility] Station ID: [id number]
[2021-12-21 13:39] LABS: BILIRUBIN,URINE NEGATIVE (NEGATIVE); GLUCOSE, URINE (UA) NEGATIVE (NEGATIVE); KETONES,URINE (UA) NEGATIVE (NEGATIVE); LEUKOCYTE ESTERASE, URINE SMALL (NEGATIVE); NITRITE,URINE NEGATIVE (NEGATIVE); OCCULT BLOOD,URINE NEGATIVE (NEGATIVE); PROTEIN,URINE NEGATIVE (NEGATIVE); UROBILINOGEN,URINE 0.2 (NORMAL) E.U./dL (NORMAL)
[2021-12-21 13:45] LABS: CLARITY,URINE SL. CLOUDY (CLEAR)
[2021-12-21 13:46] LABS: BACTERIA,URINE Rare /HPF (None Seen); RBC,URINE None Seen /HPF (0-5); SQUAMOUS EPITHELIAL CELL,UR MOD Squamous (<= Few)
[2021-12-21] MEDS ORDERED: NITROFURANTOIN MACRO 100 MG CAPSULE PO STA (14:12)
[2021-12-21 14:46] VITALS: BP 140/75
== END 2021-12-21 14:46 | disposition home or self-care (01) ==
LOC: EDUNIT# → ED 11:48
DX: N30.00 Acute cystitis without hematuria (principal); I10 Essential (primary) hypertension
CPT/HCPCS: 36415; 71045; 80053; 81001; 83690; 84484; 85025; 93005; 96374; 99282; 99284; A9270; 81003; 87086

== ENCOUNTER 2022-06-05 00:34 | Emergency (ER) | payer MEDICARE ==
[2022-06-05] MEDS ORDERED: ONDANSETRON 4 MG/2 ML VIAL IVP STA (00:49)
[2022-06-05] MEDS ORDERED: SODIUM CHLORIDE 0.9% 1,000 ML IV STA (00:49)
[2022-06-05] MEDS ORDERED: ACETAMINOPHEN 325 MG TABLET PO STA (00:57)
[2022-06-05 00:59] LABS: BILIRUBIN,URINE NEGATIVE (NEGATIVE); GLUCOSE, URINE (UA) NEGATIVE (NEGATIVE); KETONES,URINE (UA) NEGATIVE (NEGATIVE); LEUKOCYTE ESTERASE, URINE TRACE (NEGATIVE); NITRITE,URINE NEGATIVE (NEGATIVE); OCCULT BLOOD,URINE TRACE-INTA (NEGATIVE); PROTEIN,URINE NEGATIVE (NEGATIVE); UROBILINOGEN,URINE 0.2 (NORMAL) E.U./dL (NORMAL)
[2022-06-05 01:05] LABS: CLARITY,URINE HAZY (CLEAR)
[2022-06-05 01:06] LABS: BACTERIA,URINE Few /HPF (None Seen); RBC,URINE 0-5 /HPF (0-5); SQUAMOUS EPITHELIAL CELL,UR MOD Squamous (<= Few)
[2022-06-05 01:12] LABS: BASOPHILS % (AUTO) 0.4 %; EOSINOPHILS # (AUTO) 0.1 10^3/uL (0.0-0.7); EOSINOPHILS % (AUTO) 1.1 %; HCT - HEMATOCRIT 44.4 % (37.0-47.0); HGB - HEMOGLOBIN 14.5 g/dL (12.0-16.0); LYMPHOCYTES # (AUTO) 0.4 10^3/uL (1.5-3.5); LYMPHOCYTES % (AUTO) 3.9 %; MEAN CORPUSCULAR HEMOGLOBIN 28.4 pg (27.0-31.0); MEAN CORPUSCULAR HGB CONC 32.7 g/dL (32.0-36.0); MEAN CORPUSCULAR VOLUME 87.1 fL (81.0-99.0); MEAN PLATELET VOLUME 11.3 fL (7.9-10.8); MONOCYTES # (AUTO) 0.5 10^3/uL (0.0-1.0); MONOCYTES % (AUTO) 4.3 %; NEUTROPHILS # (AUTO) 10.3 10^3/uL (1.5-6.6); PLT - PLATELET COUNT 238 10^3/uL (130-450); RED CELL DISTRIBUTION WIDTH 13.2 % (12.0-15.0); WHITE BLOOD COUNT 11.4 x10^3/uL (4.8-10.8)
[2022-06-05] MEDS ORDERED: iohexoL-300 100 ML VIAL ONE (01:12)
[2022-06-05 01:21] LABS: ALBUMIN 3.6 g/dL (3.2-5.5); ALBUMIN/GLOBULIN RATIO 1.1 (1.0-2.2); BILIRUBIN,TOTAL 0.9 mg/dL (0.2-1.0); CALCIUM 9.5 mg/dL (8.5-10.3); CREATININE 0.9 mg/dL (0.4-1.0)
[2022-06-05] MEDS ORDERED: iohexoL-300 100 ML VIAL IVP ONE (01:50)
--- NOTE | 2022-06-05 02:08 | CT Report ---
PROCEDURE: ABDOMEN/PELVIS W INDICATIONS: lower abd pain/back pain CONTRAST: 100 ML OMNI 300 TECHNIQUE: After the administration of contrast, 5 mm thick sections acquired from the diaphragms to the sym physis. 5 mm thick coronal and sagittal reformats were acquired. For radiation dose reduction, the following was used: automated exposure control, adjustment of mA and/or kV according to patient size . COMPARISON: Prior abdominal/pelvic CT scanning 06/10/2021. FINDINGS: Image quality: Excellent. ABDOMEN: Lung bases: Lung bases are clear except for region of mild alveolar infiltration posterior left lowe r lobe. Heart size is normal. Solid organs: Liver and spleen are normal in size and enhancement. Gallbladder has been previously resected Biliary system is non dilated. Pancreas enhances normally. No adrenal nodules. Kidneys d emonstrate normal size and enhancement, without hydronephrosis. Peritoneum and bowel: Bowel loops demonstrate normal wall thickness and caliber. No free fluid or a ir. Nodes and vessels: No retroperitoneal or mesenteric adenopathy by size criteria. Aorta and inferior vena cava are normal in size. Miscellaneous: No ventral hernias. PELVIS: Genitourinary: Bladder wall thickness is normal. Miscellaneous: No inguinal hernias or adenopathy. Bones: No suspicious bony lesions. No vertebral body compression fractures. IMPRESSION: Mild or early pneumonia posterior left lower lobe. Below the diaphragms no acute disease is found. Prior cholecystectomy. Reviewed by: Av Aleman MD on 06/05/2022 2:06 AM [facility] Approved by: Av Aleman MD on 06/05/2022 2:06 AM PST Station ID: [id number]
[2022-06-05 02:15] LABS: B. PARAPERTUSSIS- RESP PCR PAN NOT DETECTED; B. PERTUSSIS- RESP PCR PANEL NOT DETECTED; C. PNEUMONIAE- RESP PCR PANEL NOT DETECTED; CORONAVIRUS 229E-RESP PCR NOT DETECTED; CORONAVIRUS HKU1-RESP PCR NOT DETECTED; CORONAVIRUS NL63-RESP PCR NOT DETECTED; CORONAVIRUS OC43-RESP PCR NOT DETECTED; HUMAN METAPNEUMOVIRUS NOT DETECTED; INFLUENZA A- RESP PCR PANEL NOT DETECTED; INFLUENZA B - RESP PCR PANEL NOT DETECTED; M. PNEUMONIAE- RESP PCR PANEL NOT DETECTED; PARAINFLUENZA VIRUS 1 NOT DETECTED; PARAINFLUENZA VIRUS 2 NOT DETECTED; PARAINFLUENZA VIRUS 3 NOT DETECTED; PARAINFLUENZA VIRUS 4 NOT DETECTED; RHINOVIRUS/ENTEROVIRUS NOT DETECTED; RSV- RESP PCR PANEL NOT DETECTED; SARS-CoV-2 -RESP PCR PANEL NOT DETECTED
[2022-06-05] MEDS ORDERED: AZITHROMYCIN 250 MG TABLET PO STA (02:23)
--- NOTE | 2022-06-05 02:26 | ED Physician Documentation ---
History of Present Illness - Stated complaint Stated Complaint: ABD PX - Chief complaint Chief Complaint: Abd Pain - History obtained from History obtained from: Patient - Additonal information Additional information: Patient is a 71-year-old female presenting for evaluation of generalized weakness, lower abdominal discomfort, back aching, and nausea.She was seen yesterday at the walk-in clinic for feeling like she had a UTI and started on Macrobid.She did have a few episodes of diarrhea today. She is also had a recent cough and congestion.She has been tolerating p.o. intake. She denies known f isabela, chest pain, difficulty breathing.Thinks her symptoms better or worse. She is unsure of any sick contacts. Urine culture has resulted in no growth. Review of Systems Constitutional: denies: Fever Nose: reports: Congestion Cardiac: denies: Chest pain / pressure Respiratory: reports: Cough. denies: Dyspnea GI: reports: Abdominal Pain, Nausea. 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: Hysterectomy, Oophrectomy HEENT:  - Present Medications Home Medications: Ambulatory Orders Medication Instructions Recorded Confirmed DULoxetine [Cymbalta] 30 mg PO DAILY 03/25/21 06/05/22 Levothyroxine [Synthroid] 175 mcg PO DAILY 03/25/21 06/05/22 Omeprazole 1 tab PO DAILY 03/25/21 06/05/22 Meclizine HCl [Motion Sickness] 25 mg PO Q6H PRN #30 tablet 12/21/21 06/05/22 Nitrofurantoin [Macrobid] 100 mg PO BID #10 cap 12/21/21 06/05/22 Ondansetron Odt [Zofran] 4 mg TL Q6H PRN #10 tablet 12/21/21 06/05/22 Azithromycin [Zithromax] 1 tab PO DAILY #4 tab 06/05/22 Ondansetron Odt [Zofran] 4 mg TL Q6H PRN #10 tablet 06/05/22 - Allergies Allergies/Adverse Reactions: Allergies Allergy/AdvReac Type Severity Reaction Status Date / Time codeine Allergy Nausea Verified 06/05/22 00:43 Penicillins Allergy Rash Verified 06/05/22 00:43 Sulfa (Sulfonamide Allergy Rash Verified 06/05/22 00:43 Antibiotics) divalproex sodium AdvReac Severe Emesis Verified 06/05/22 00:43 [From Depakote] lorazepam AdvReac Severe Edema Verified 06/05/22 00:43 naproxen [From Naprosyn] AdvReac Severe Edema Verified 06/05/22 00:43 nortriptyline AdvReac Severe Emesis Verified 06/05/22 00:43 prednisone AdvReac Severe Emesis Verified 06/05/22 00:43 prochlorperazine AdvReac Severe Emesis Verified 06/05/22 00:43 [From Compazine] - Social History Does the pt smoke?: No Smoking Status: Never smoker Does the pt drink ETOH?: Yes Does the pt have substance abuse?: No - Immunizations Immunizations are current?: Yes - POLST Patient has POLST: No PD ED PE NORMAL - General General: Alert and oriented X 3, No acute distress, Well developed/nourished - HEENT HEENT: Atraumatic, Moist mucous membranes, Pharynx benign - Neck Neck: Supple, no meningeal sign, No bony TTP - Cardiac Cardiac: RRR, No murmur, Strong equal pulses - Respiratory Respiratory: No respiratory distress, Other (Diminished at the bases, otherwise clear) - Abdomen Abdomen: Normal bowel sounds, Soft, Non distended, Other (Mild generalized abdominal tenderness to palpation, no rebound, no guarding, no pulsatile mass, no hernia) - Derm Derm: Warm and dry - Extremities Extremities: No edema - Neuro Neuro: Alert and oriented X 3, No motor deficit, Normal speech Results - Vitals Vitals: Vital Signs - 24 hr 06/05/22 06/05/22 00:44 02:43 Temperature 37.5 C 37.2 C Heart Rate 86 73 Respiratory 18 18 Rate Blood Pressure 170/65 H 151/72 H O2 Saturation 100 96 Oxygen O2 Source Room air - Labs Labs: Laboratory Tests 06/05/22 06/05/22 06/05/22 00:50 00:55 00:55 WBC 11.4 H RBC 5.10 Hgb 14.5 Hct 44.4 MCV 87.1 MCH 28.4 MCHC 32.7 RDW 13.2 Plt Count 238 MPV 11.3 H Neut # (Auto) 10.3 H Lymph # (Auto) 0.4 L [place] # (Auto) 0.5 Eos # (Auto) 0.1 Baso # (Auto) 0.0 Absolute Nucleated RBC 0.00 Nucleated RBC % 0.0 Sodium 135 Potassium 4.0 Chloride 100 L Carbon Dioxide 25 Anion Gap 10.0 BUN 16 Creatinine 0.9 Estimated GFR (MDRD) 62 L Glucose 139 H Calcium 9.5 Total Bilirubin 0.9 AST 17 ALT 19 Alkaline Phosphatase 98 Total Protein 7.0 Albumin 3.6 Globulin 3.4 Albumin/Globulin Ratio 1.1 Lipase 36 Urine Color YELLOW Urine Clarity HAZY Urine pH 6.0 Ur Specific [place] 1.020 Urine Protein NEGATIVE Urine Glucose (UA) NEGATIVE Urine Ketones NEGATIVE Urine Occult Blood TRACE-INTA Urine Nitrite NEGATIVE Urine Bilirubin NEGATIVE Urine Urobilinogen 0.2 (NORMAL) Ur Leukocyte Esterase TRACE H Urine RBC 0-5 Urine WBC 6-10 H Ur Squamous Epith Cells MOD Squamous H Urine Bacteria Few Ur Microscopic Review INDICATED Urine Culture Comments NOT INDICATED Nasal Adenovirus (PCR) Nasal B. parapertussis DNA (PCR) Nasal Coronavir 229E PCR Nasal Coronavir HKU1 PCR Nasal Coronavir NL63 PCR Nasal Coronavir OC43 PCR Nasal Enterovir/Rhinovir PCR Nasal Influenza B PCR Nasal Influenza A PCR Nasal Parainfluen 1 PCR Nasal Parainfluen 2 PCR Nasal Parainfluen 3 PCR Nasal Parainfluen 4 PCR Nasal RSV (PCR) Nasal B.pertussis DNA PCR Nasal C.pneumoniae (PCR) Xiang Human Metapneumo PCR Nasal M.pneumoniae (PCR) Nasal SARS-CoV-2 (PCR) 06/05/22 01:18 WBC RBC Hgb Hct MCV MCH MCHC RDW Plt Count MPV Neut # (Auto) Lymph # (Auto) [place] # (Auto) Eos # (Auto) Baso # (Auto) Absolute Nucleated RBC Nucleated RBC % Sodium Potassium Chloride Carbon Dioxide Anion Gap BUN Creatinine Estimated GFR (MDRD) Glucose Calcium Total Bilirubin AST ALT Alkaline Phosphatase Total Protein Albumin Globulin Albumin/Globulin Ratio Lipase Urine Color Urine Clarity Urine pH Ur Specific [place] Urine Protein Urine Glucose (UA) Urine Ketones Urine Occult Blood Urine Nitrite Urine Bilirubin Urine Urobilinogen Ur Leukocyte Esterase Urine RBC Urine WBC Ur Squamous Epith Cells Urine Bacteria Ur Microscopic Review Urine Culture Comments Nasal Adenovirus (PCR) NOT DETECTED Nasal B. parapertussis DNA (PCR) NOT DETECTED Nasal Coronavir 229E PCR NOT DETECTED Nasal Coronavir HKU1 PCR NOT DETECTED Nasal Coronavir NL63 PCR NOT DETECTED Nasal Coronavir OC43 PCR NOT DETECTED Nasal Enterovir/Rhinovir PCR NOT DETECTED Nasal Influenza B PCR NOT DETECTED Nasal Influenza A PCR NOT DETECTED Nasal Parainfluen 1 PCR NOT DETECTED Nasal Parainfluen 2 PCR NOT DETECTED Nasal Parainfluen 3 PCR NOT DETECTED Nasal Parainfluen 4 PCR NOT DETECTED Nasal RSV (PCR) NOT DETECTED Nasal B.pertussis DNA PCR NOT DETECTED Nasal C.pneumoniae (PCR) NOT DETECTED Xiang Human Metapneumo PCR NOT DETECTED Nasal M.pneumoniae (PCR) NOT DETECTED Nasal SARS-CoV-2 (PCR) NOT DETECTED PD MEDICAL DECISION MAKING - ED course Complexity details: reviewed results, re-evaluated patient, d/w patient ED course: Patient was recently diagnosed with a UTI, presenting for evaluation of generalized weakness with associated complaints. Work-up was done which demonstrated normal urine, unrevealing labs, CT scan with evidence of pneumonia.Patient is feeling better after nausea medications and IV fluids.Her vital signs appear stable. Discussed CT results and patient is comfortable with plan for outpatient management with p.o. antibiotics.Patient counseled on concerning symptoms to return for. Departure - Departure Disposition: 01 Home, Self Care Clinical Impression: CAP (community acquired pneumonia) Condition: Stable Instructions: ED Pneumonia Adult Prescriptions: Azithromycin [Zithromax] 1 tab PO DAILY #4 tab Ondansetron Odt [Zofran] 4 mg TL Q6H PRN #10 tablet PRN Reason: Nausea / Vomiting Comments: You were found to have pneumonia. Your respiratory panel was negative for The viruses that we check including COVID and influenza. Your labs are reassuring and your CT scan did not show other significant findings other than pneumonia. Please stop taking the Macrobid as your urine culture yesterday did not show any growth. I have started you on a new antibiotic that will cover for pneumonia and sent this prescription to [facility]. Please make sure to get plenty of rest, stay hydrated, use Tylenol or Motrin for fevers and pain. If you have any worsening symptoms please return to the emergency department.
[2022-06-05 02:51] VITALS: BP 151/72
== END 2022-06-05 02:50 | disposition home or self-care (01) ==
LOC: EDUNIT# → ED 00:34
DX: J18.9 Pneumonia, unspecified organism (principal); Z20.822 Contact with and (suspected) exposure to COVID-19
CPT/HCPCS: 36415; 74177; 80053; 81001; 83690; 85025; 87633; 96374; 99282; 99283; A9270; Q9967; 81003; 87086

== ENCOUNTER → 2022-06-05 | Outpatient (CLI) | payer MEDICARE | END | disposition critical access hospital (66) | LOC: EMS 00:26 | DX: R10.84 Generalized abdominal pain (principal); R11.0 Nausea; M54.50 Low back pain, unspecified; R42 Dizziness and giddiness; R05.9 Cough, unspecified; R19.7 Diarrhea, unspecified; R50.9 Fever, unspecified | CPT/HCPCS: A0425; A0429 ==

== ENCOUNTER 2022-06-23 22:47 | Emergency (ER) | payer MEDICARE ==
[2022-06-23 23:19] LABS: RAPID STREP SCREEN Negative (Negative)
[2022-06-24] MEDS ORDERED: HYDROcod/ACETAM 5/325 MG TABLET PO STA (00:11)
[2022-06-24] MEDS ORDERED: predniSONE 20 MG TABLET PO STA (00:12)
[2022-06-24] MEDS ORDERED: ONDANSETRON ODT 4 MG TABLET TL STA (00:12)
--- NOTE | 2022-06-24 00:22 | ED Physician Documentation ---
PD HPI HEENT - Stated complaint Stated Complaint: THROAT SWOLLEN & SORE - Chief complaint Chief Complaint: Heent - History obtained from History obtained from: Patient - Additional information Additional information: The patient comes to the emergency department chief complaint of sore throat. She states its been going on for the last 2 days and that her throat felt swollen. No fevers or chills. No rhinorrhea or cough. She had a tonsillectomy when she was a child. She has not had any known sick contacts. No other complaints at this time. Review of Systems Ten Systems: 10 systems reviewed and negative Constitutional: reports: Reviewed and negative Eyes: reports: Reviewed and negative Ears: reports: Reviewed and negative Nose: reports: Reviewed and negative Throat: reports: Sore throat Cardiac: reports: Reviewed and negative Respiratory: reports: Reviewed and negative GI: reports: Reviewed and negative : reports: Reviewed and negative Skin: reports: Reviewed and negative Musculoskeletal: reports: Reviewed and negative Neurologic: reports: Reviewed and negative Psychiatric: reports: Reviewed and negative Endocrine: reports: Reviewed and negative Immunocompromised: reports: Reviewed and negative PD PAST MEDICAL HISTORY - Past Medical History Past Medical History: Yes Cardiovascular: Hypertension Respiratory: Pneumonia Endocrine/Autoimmune: HyPOthyroidism GI: GERD 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 HEENT: Other Psych: None, Depression, Anxiety Musculoskeletal: Fibromyalgia, Other Derm: Herpes zoster - Past Surgical History Past Surgical History: Yes General: Cholecystectomy, Appendectomy Ortho: 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: Hysterectomy, Oophrectomy HEENT:  - Present Medications Home Medications: Ambulatory Orders Medication Instructions Recorded Confirmed DULoxetine [Cymbalta] 30 mg PO DAILY 03/25/21 06/05/22 Levothyroxine [Synthroid] 175 mcg PO DAILY 03/25/21 06/05/22 Omeprazole 1 tab PO DAILY 03/25/21 06/05/22 Meclizine HCl [Motion Sickness] 25 mg PO Q6H PRN #30 tablet 12/21/21 06/05/22 Nitrofurantoin [Macrobid] 100 mg PO BID #10 cap 12/21/21 06/05/22 Ondansetron Odt [Zofran] 4 mg TL Q6H PRN #10 tablet 12/21/21 06/05/22 Azithromycin [Zithromax] 1 tab PO DAILY #4 tab 06/05/22 Ondansetron Odt [Zofran] 4 mg TL Q6H PRN #10 tablet 06/05/22 HYDROcod/ACETAM 5/325 [Kane 5/325] 1 - 2 tablet PO Q6H PRN #14 tablet 06/24/22 Ondansetron Odt [Zofran] 4 mg TL Q6H PRN #10 tablet 06/24/22 dexAMETHasone [Decadron] 4 mg PO BIDWM PRN #10 tablet 06/24/22 - Allergies Allergies/Adverse Reactions: Allergies Allergy/AdvReac Type Severity Reaction Status Date / Time codeine Allergy Nausea Verified 06/23/22 23:01 Penicillins Allergy Rash Verified 06/23/22 23:01 Sulfa (Sulfonamide Allergy Rash Verified 06/23/22 23:01 Antibiotics) divalproex sodium AdvReac Severe Emesis Verified 06/23/22 23:01 [From Depakote] lorazepam AdvReac Severe Edema Verified 06/23/22 23:01 naproxen [From Naprosyn] AdvReac Severe Edema Verified 06/23/22 23:01 nortriptyline AdvReac Severe Emesis Verified 06/23/22 23:01 prednisone AdvReac Severe Emesis Verified 06/23/22 23:01 prochlorperazine AdvReac Severe Emesis Verified 06/23/22 23:01 [From Compazine] - Social History Does the pt smoke?: No Smoking Status: Never smoker Does the pt drink ETOH?: Yes Does the pt have substance abuse?: No - Immunizations Immunizations are current?: Yes - POLST Patient has POLST: No PD ED PE NORMAL - Vitals Vital signs reviewed: Yes - General General: Alert and oriented X 3, No acute distress, Well developed/nourished - HEENT HEENT: Atraumatic, PERRL, EOMI, Moist mucous membranes, Pharynx benign - Neck Neck: Supple, no meningeal sign, Other (Mild bilateral cervical lymphadenopathy anteriorly) - Cardiac Cardiac: RRR, No murmur, Strong equal pulses - Respiratory Respiratory: No respiratory distress, Clear bilaterally - Abdomen Abdomen: Soft, Non tender, Non distended - Derm Derm: Warm and dry - Extremities Extremities: No deformity - Neuro Neuro: Alert and oriented X 3 - Psych Psych: Normal mood, Normal affect Results - Vitals Vitals: Vital Signs - 24 hr 12/22/22 12/23/22 22:50 00:41 Temperature 36.8 C Heart Rate 68 86 Respiratory 18 16 Rate Blood Pressure 168/75 H 153/87 H O2 Saturation 100 99 Oxygen O2 Source Room air - Labs Labs: Laboratory Tests 06/23/22 23:04 Group A Strep Rapid Negative PD Medical Decision Making - ED course Complexity details: considered differential, d/w patient ED course: The patient was worked up with rapid strep, which was found to be negative. She was treated Symptomatically in the emergency department. I discussed with her that At this point in time, there is no indication for antibiotics. If the patient's throat culture comes back positive, we will contact her at home. We have discussed symptomatic management at home, and the usual indications for return. Departure - Departure Disposition: 01 Home, Self Care Clinical Impression: Pharyngitis Qualifiers: Pharyngitis/tonsillitis etiology: unspecified etiology Qualified Code(s): J02.9 - Acute pharyngitis, unspecified Condition: Stable Instructions: ED Pharyngitis Viral Prescriptions: dexAMETHasone [Decadron] 4 mg PO BIDWM PRN #10 tablet PRN Reason: Pain HYDROcod/ACETAM 5/325 [Kane 5/325] 1 - 2 tablet PO Q6H PRN #14 tablet PRN Reason: Pain Ondansetron Odt [Zofran] 4 mg TL Q6H PRN #10 tablet PRN Reason: Nausea / Vomiting Comments: Your strep test is negative, and your throat does not have the typical appearance of strep throat. Most likely, your sore throat is due to a viral infection, of which we have been seen many. However, your throat swab will be cultured and if it comes back positive for strep of any variety, you will be notified, and an antibiotic prescription sent in to your pharmacy. You will most likely have symptoms for anywhere from several days to a week. At this point in time, we will focus on improving your symptoms so that you can get rest and heal. A prescription for medication for pain and inflammation, and for nausea, have been electronically transmitted to the [facility] pharmacy in [place]. Please take this medications as directed and as needed. You may follow-up with your primary care physician as needed. Discharge Date/Time: 06/24/22 00:42
[2022-06-24 00:42] VITALS: BP 153/87
== END 2022-06-24 00:42 | disposition home or self-care (01) ==
LOC: ED 22:47
DX: J02.9 Acute pharyngitis, unspecified (principal); I10 Essential (primary) hypertension
CPT/HCPCS: 87070; 87430; 99282; 99283; A9270; J7512; Q0162